=== PATIENT | male | born 1955 | race Hispanic/Latino ===

== ENCOUNTER → 2024-02-22 | Outpatient (REF) | payer MEDICARE | LOC: MRI 10:35 | PROVIDERS: ATTEND Nurse Practitioner Family | DX: I70.262 Atherosclerosis of native arteries of extremities with gangrene, left leg (principal); L97.823 Non-pressure chronic ulcer of other part of left lower leg with necrosis of muscle | CPT/HCPCS: 93922; 93925 ==

== ENCOUNTER 2024-02-23 09:29 | Outpatient (RCR) | payer MEDICARE ==
[2024-02-17 16:09] LABS: BASOPHILS # (AUTO) 0.1 (0.0-0.1); BASOPHILS % 1.1 % (0.0-1.0); EOSINOPHILS # (AUTO) 0.4 (0.0-0.4); EOSINOPHILS % 4.5 % (0.0-6.0); HEMATOCRIT 48.8 % (38.2-49.6); HEMOGLOBIN 17.2 g/dL (14.0-18.0); LYMPHOCYTES % 23.9 % (18.0-39.1); MEAN CORPUSCULAR HGB CONC 35.2 g/dL (31-35); MEAN CORPUSCULAR VOLUME 87.9 fL (81-99); MONOCYTES # (AUTO) 0.5 (0.2-0.8); MONOCYTES % 6.5 % (4.4-11.3); NEUTROPHILS # (AUTO) 5.3 (2.1-6.9); NEUTROPHILS % 63.3 % (38.7-80.0); PLATELET COUNT 170 x10e3/uL (140-360); RED BLOOD COUNT 5.55 x10e6/uL (4.3-5.7); RED CELL DISTRIBUTION WIDTH 13.4 % (11.7-14.4); WHITE BLOOD COUNT 8.36 x10e3/uL (4.8-10.8)
[2024-02-17 16:29] LABS: ALBUMIN 3.7 g/dL (3.5-5.0); ALBUMIN/GLOBULIN RATIO 1.2 (0.8-2.0); ANION GAP 15.7 mmol/L (8-16); BILIRUBIN,TOTAL 0.7 mg/dL (0.2-1.2); CALCIUM 10.1 mg/dL (8.4-10.2); CREATININE, SERUM 0.99 mg/dL (0.72-1.25); POTASSIUM 3.7 mmol/L (3.5-5.1); TOTAL PROTEIN 6.8 g/dL (6.5-8.1)
[2024-02-23] MEDS ORDERED: LIDOCAINE VISC 2% SOLN 15 ML UDC ONE (12:41)
[2024-02-23] MEDS ORDERED: MUPIROCIN 2% OINT 22 GM TUBE ONE (12:41)
[2024-02-23] MEDS ORDERED: COLLAGENASE OINTMENT 30 GM TUBE ONE (12:41)
[2024-02-28] MEDS ORDERED: ULTRAM 50MG50 MG PO (15:41)
[2024-02-28] MEDS ORDERED: JARDIANCE10 MG PO (15:41)
[2024-02-28] MEDS ORDERED: DOXYCYCLINE HY100 MG PO (15:41)
[2024-02-28] MEDS ORDERED: ATORVASTATIN CA10 MG PO (15:41)
[2024-02-28] MEDS ORDERED: METFORMIN HCL500 MG PO (15:41)
[2024-02-28] MEDS ORDERED: GLUCOTROL XL10 MG PO (15:41)
[2024-02-28] MEDS ORDERED: LANTUS 3ML100 UNITS/ PO (15:41)
[2024-02-28] MEDS ORDERED: COREG12.5 MG PO (15:41)
[2024-02-28] MEDS ORDERED: AMLODIPINE BESY10 MG PO (15:41)
[2024-02-28] MEDS ORDERED: HYDROCHLOROTHIA25 MG PO (15:41)
[2024-02-28] MEDS ORDERED: LISINOPRIL20 MG PO (15:41)
== END 2024-02-28 14:35 | disposition home or self-care (01) ==
LOC: WCC 09:29
PROVIDERS: ATTEND Nurse Practitioner Family
DX: I70.262 Atherosclerosis of native arteries of extremities with gangrene, left leg (principal); L97.823 Non-pressure chronic ulcer of other part of left lower leg with necrosis of muscle
CPT/HCPCS: 36415; 80053; 83036; 84134; 85025; 87071; 87075; 87205

== ENCOUNTER 2024-02-28 12:34 | Inpatient (IN) | payer MEDICARE ==
[~2024-02-28] VITALS: Ht 165.1 cm; Wt 73.2 kg
[2024-02-28] MEDS ORDERED: Morphine 2mg Syringe 2 MG/ML SYR IV PRN (15:30)
[2024-02-28] MEDS ORDERED: ONDANSETRON HCL INJ 2MG/ML 2ML 2 MG/ML VIAL IV PRN (15:30)
[2024-02-28] MEDS ORDERED: JARDIANCE10 MG PO (15:41)
[2024-02-28] MEDS ORDERED: ULTRAM 50MG50 MG PO (15:41)
[2024-02-28] MEDS ORDERED: LISINOPRIL20 MG PO (15:41)
[2024-02-28] MEDS ORDERED: GLUCOTROL XL10 MG PO (15:41)
[2024-02-28] MEDS ORDERED: HYDROCHLOROTHIA25 MG PO (15:41)
[2024-02-28] MEDS ORDERED: LANTUS 3ML100 UNITS/ PO (15:41)
[2024-02-28] MEDS ORDERED: ATORVASTATIN CA10 MG PO (15:41)
[2024-02-28] MEDS ORDERED: AMLODIPINE BESY10 MG PO (15:41)
[2024-02-28] MEDS ORDERED: COREG12.5 MG PO (15:41)
[2024-02-28] MEDS ORDERED: METFORMIN HCL500 MG PO (15:41)
[2024-02-28] MEDS ORDERED: DOXYCYCLINE HY100 MG PO (15:41)
[2024-02-28] MEDS ORDERED: DEXTROSE 50% SYRINGE 50 ML IV PRN (15:45)
[2024-02-28] MEDS ORDERED: TRAMADOL HCL 50 MG TAB PO PRN (15:45)
[2024-02-28 16:07] VITALS: BP 137/74; PULSE 51; RESP 22; TEMP 98.2; O2SAT 97
[2024-02-28 16:24] VITALS: BP 137/74; PULSE 51; RESP 22; TEMP 98.2; O2SAT 97
[2024-02-28] MEDS: CARVEDILOL 3.125 MG TAB PO SCH (17:00)
[2024-02-28] MEDS ORDERED: CARVEDILOL 12.5 MG TAB PO SCH (17:00)
[2024-02-28] MEDS: FLUCONAZOLE 100 MG TAB PO SCH (17:25)
[2024-02-28] MEDS: Vancomycin IV 1 GM in SODIUM CHLORIDE 0.9% 250ML 250 ML IV ONE (17:26)
[2024-02-28] MEDS: INSULIN REGULAR, HUMAN 100 UNIT/1 ML SQ SCH (17:40)
[2024-02-28 18:10] LABS: BASOPHILS # (AUTO) 0.1 (0.0-0.1); BASOPHILS % 0.6 % (0.0-1.0); EOSINOPHILS # (AUTO) 0.3 (0.0-0.4); HEMATOCRIT 49.4 % (38.2-49.6); HEMOGLOBIN 17.3 g/dL (14.0-18.0); LYMPHOCYTES # (AUTO) 2.2 (1.0-3.2); LYMPHOCYTES % 20.2 % (18.0-39.1); MEAN CORPUSCULAR HEMOGLOBIN 30.9 pg (28-32); MEAN CORPUSCULAR VOLUME 88.2 fL (81-99); MONOCYTES # (AUTO) 0.7 (0.2-0.8); MONOCYTES % 6.6 % (4.4-11.3); NEUTROPHILS # (AUTO) 7.5 (2.1-6.9); NEUTROPHILS % 69.1 % (38.7-80.0); PLATELET COUNT 161 x10e3/uL (140-360); RED CELL DISTRIBUTION WIDTH 13.3 % (11.7-14.4)
[2024-02-28 18:14] VITALS: BP 137/7; PULSE 51; RESP 22; TEMP 98.4; O2SAT 97
[2024-02-28 18:34] LABS: ALBUMIN 3.6 g/dL (3.5-5.0); ALBUMIN/GLOBULIN RATIO 1.2 (0.8-2.0); ANION GAP 15.3 mmol/L (8-16); BILIRUBIN,TOTAL 0.8 mg/dL (0.2-1.2); CALCIUM 10.1 mg/dL (8.4-10.2); CREATININE, SERUM 1.16 mg/dL (0.72-1.25); POTASSIUM 4.3 mmol/L (3.5-5.1); TOTAL PROTEIN 6.7 g/dL (6.5-8.1)
[2024-02-28 20:00] VITALS: BP 155/81; PULSE 51; RESP 18; TEMP 98.5; O2SAT 100
[2024-02-28] MEDS ORDERED: INSULIN GLARGINE PO SCH (21:00)
[2024-02-28] MEDS: INSULIN GLARGINE 100 UNITS/ML VIAL SQ SCH (21:00)
[2024-02-28 21:14] VITALS: BP 155/81; PULSE 51; RESP 18; TEMP 98.5; O2SAT 100
[2024-02-29] VITALS (12 sets, daily range): BP systolic 135–165; BP diastolic 74–87; PULSE 49–85; RESP 16–20; TEMP 97.7–98.6; O2SAT 66–100
[2024-02-29 06:19] LABS: BASOPHILS # (AUTO) 0.1 (0.0-0.1); BASOPHILS % 0.9 % (0.0-1.0); EOSINOPHILS # (AUTO) 0.4 (0.0-0.4); HEMATOCRIT 47.5 % (38.2-49.6); HEMOGLOBIN 16.6 g/dL (14.0-18.0); LYMPHOCYTES # (AUTO) 2.4 (1.0-3.2); LYMPHOCYTES % 26.2 % (18.0-39.1); MEAN CORPUSCULAR HEMOGLOBIN 30.9 pg (28-32); MEAN CORPUSCULAR HGB CONC 34.9 g/dL (31-35); MEAN CORPUSCULAR VOLUME 88.5 fL (81-99); MONOCYTES # (AUTO) 0.7 (0.2-0.8); MONOCYTES % 7.7 % (4.4-11.3); NEUTROPHILS # (AUTO) 5.6 (2.1-6.9); NEUTROPHILS % 60.8 % (38.7-80.0); PLATELET COUNT 146 x10e3/uL (140-360); RED BLOOD COUNT 5.37 x10e6/uL (4.3-5.7); RED CELL DISTRIBUTION WIDTH 13.2 % (11.7-14.4)
[2024-02-29 06:56] LABS: ANION GAP 14.6 mmol/L (8-16); CALCIUM 9.7 mg/dL (8.4-10.2); CREATININE, SERUM 0.99 mg/dL (0.72-1.25); POTASSIUM 3.6 mmol/L (3.5-5.1)
[2024-02-29 07:20] LABS: CHOL/HDL RATIO 5.7 (3.9-4.7)
[2024-02-29] MEDS: EMPAGLIFLOZIN 10 MG TABLET PO SCH (09:31)
[2024-02-29] MEDS: ASPIRIN 81 MG CHEW TAB PO SCH (09:33)
[2024-02-29] MEDS: HYDROCHLOROTHIAZIDE 25 MG TAB PO SCH (09:33)
[2024-02-29] MEDS: AMLODIPINE BESYLATE 10 MG TAB PO SCH (09:34)
[2024-02-29] MEDS: LISINOPRIL 20 MG TAB PO SCH (09:35)
[2024-02-29] MEDS: ATORVASTATIN 10 MG TAB PO SCH (09:35)
[2024-02-29] MEDS ORDERED: ONDANSETRON HCL 4 MG ORAL DISINTEGRATING TAB PO PRN (14:00)
[2024-02-29] MEDS: DOXYCYCLINE HYCLATE TABLET 100 MG TAB PO SCH (17:14)
[2024-02-29] MEDS: SODIUM CHLORIDE 0.9% 250ML 250 ML ONE (19:47)
[2024-03-01 05:16] VITALS: BP 176/74; PULSE 67; RESP 17; TEMP 98.1; O2SAT 100
[2024-03-01 09:09] VITALS: BP 146/83; PULSE 59; RESP 21; TEMP 97.8; O2SAT 97
[2024-03-01] MEDS: SODIUM CHLORIDE 0.9% 1000ML 1,000 ML IV SCH (13:58)
[2024-03-01] MEDS: FLUCONAZOLE 100 MG TAB PO SCH (17:52)
[2024-03-01 20:00] VITALS: BP 160/80; PULSE 57; RESP 17; TEMP 98; O2SAT 100
[2024-03-01 21:00] VITALS: BP 160/80; PULSE 57; RESP 17; TEMP 98; O2SAT 100
[2024-03-01] MEDS: FENTANYL CITRATE/PF 100MCG/2 ML INJ ONE (22:15)
[2024-03-01] MEDS: HEPARIN SOD (PORCINE) 1000 UNIT/ML 30ML ONE (22:15)
[2024-03-01] MEDS: SODIUM CHLORIDE 0.9% 1000ML 0 ML ONE (22:16)
[2024-03-01] MEDS: MIDAZOLAM HCL 2 MG/2 ML VIAL ONE (22:16)
[2024-03-01] MEDS: LIDOCAINE HCL 2% LOCAL 20 ML VIAL ONE (22:16)
[2024-03-01] MEDS: NITROGLYCERIN/D5W 200 MCG/ML 250 ML ONE (22:16)
[2024-03-01] MEDS: VERAPAMIL HCL 2.5 MG/ML 2 ML VIAL ONE (22:16)
[2024-03-01] MEDS: HEPARIN SOD/SOD CHLORIDE 2,000 ML ONE (22:16)
[2024-03-01] MEDS: IOPAMIDOL 370 MG/ML 100 ML INFUS..BTL INJ ONE (22:16)
[2024-03-01] MEDS: SODIUM CHLORIDE 0.9% 1000ML 1,000 ML ONE (22:16)
[2024-03-02] VITALS: BP 149/74; PULSE 51; RESP 17; TEMP 98.1; O2SAT 96
[2024-03-02 04:00] VITALS: BP 150/84; PULSE 58; RESP 17; TEMP 97.9; O2SAT 98
[2024-03-02 06:11] LABS: BASOPHILS # (AUTO) 0.1 (0.0-0.1); EOSINOPHILS # (AUTO) 0.4 (0.0-0.4); EOSINOPHILS % 3.8 % (0.0-6.0); HEMATOCRIT 47.8 % (38.2-49.6); HEMOGLOBIN 16.7 g/dL (14.0-18.0); LYMPHOCYTES # (AUTO) 2.4 (1.0-3.2); LYMPHOCYTES % 26.3 % (18.0-39.1); MEAN CORPUSCULAR HEMOGLOBIN 31.2 pg (28-32); MEAN CORPUSCULAR HGB CONC 34.9 g/dL (31-35); MEAN CORPUSCULAR VOLUME 89.3 fL (81-99); MONOCYTES # (AUTO) 0.8 (0.2-0.8); MONOCYTES % 8.2 % (4.4-11.3); NEUTROPHILS # (AUTO) 5.6 (2.1-6.9); NEUTROPHILS % 60.2 % (38.7-80.0); PLATELET COUNT 151 x10e3/uL (140-360); RED BLOOD COUNT 5.35 x10e6/uL (4.3-5.7); RED CELL DISTRIBUTION WIDTH 13.2 % (11.7-14.4); WHITE BLOOD COUNT 9.28 x10e3/uL (4.8-10.8)
[2024-03-02 06:37] LABS: CALCIUM 9.2 mg/dL (8.4-10.2); CREATININE, SERUM 0.92 mg/dL (0.72-1.25)
[2024-03-02 08:49] VITALS: BP 156/85; PULSE 55; RESP 20; TEMP 98.6; O2SAT 99
[2024-03-02 12:59] VITALS: BP 157/76; PULSE 48; RESP 17; TEMP 97.8; O2SAT 97
[2024-03-02] MEDS ORDERED: DIFLUCAN100 MG PO (13:27)
== END 2024-03-02 14:36 | disposition home or self-care (01) | DRG 300 ==
LOC: MED/SURG3 14:29
PROVIDERS: ADMIT Internal Medicine; ATTEND Internal Medicine
PROC: B41D1ZZ Fluoroscopy of Aorta and Bilateral Lower Extremity Arteries using Low Osmolar Contrast (ICD-10-PCS; principal; 2024-03-01)
DX: E11.51 Type 2 diabetes mellitus with diabetic peripheral angiopathy without gangrene (principal); I70.92 Chronic total occlusion of artery of the extremities; L97.829 Non-pressure chronic ulcer of other part of left lower leg with unspecified severity; I70.248 Atherosclerosis of native arteries of left leg with ulceration of other part of lower leg; E11.65 Type 2 diabetes mellitus with hyperglycemia; I11.9 Hypertensive heart disease without heart failure; B37.2 Candidiasis of skin and nail; I25.10 Atherosclerotic heart disease of native coronary artery without angina pectoris; Z95.1 Presence of aortocoronary bypass graft; Z79.4 Long term (current) use of insulin; Z79.84 Long term (current) use of oral hypoglycemic drugs; I70.201 Unspecified atherosclerosis of native arteries of extremities, right leg; E78.5 Hyperlipidemia, unspecified; Z11.52 Encounter for screening for COVID-19; Z79.899 Other long term (current) drug therapy
CPT/HCPCS: 36247; 36415; 75630; 80048; 80053; 80061; 82948; 83036; 85025; 96372; 99152; 99153; 99252; C1760; C1769; C1887; C1894; J1644; J1815; J2001; J2250; J7030; J7050; Q9967; U0002